=== PATIENT | male | born 1965 | race Two or more races ===

== ENCOUNTER 2023-12-13 16:15 | Outpatient (OUT) | payer OTHER, SELFPAY ==
--- NOTE | 2023-12-13 16:22 | XR_ITS ---
[address] [address] Patient Name: SAMI ANDERSON MRN: [id number] date: 1965 Sex: M Assigned Patient Location: [facility] Current Patient Location: Accession/Order Number: [id number] Exam Date: 12/13/2023 16:45 Report Date: 12/14/2023 07:30 At the request of: RUBA ARROYO Procedure: XR knee LT 3V PROCEDURE: XR knee LT 3V COMPARISON: None. HISTORY: medial meniscus tear, left subsequent encounter S83.242D FINDINGS: BONES:No fracture, acute abnormality, or significant arthropathy. SOFT TISSUES:Negative. No visible soft tissue swelling. EFFUSION:None visible. OTHER: Negative. XR/XR knee LT 3V IMPRESSION: No acute radiographic abnormality Electronically authenticated by: SANNA BETHEA Date: 12/14/2023 07:30
== END 2023-12-13 16:16 | disposition home or self-care (01) ==
LOC: RAD 16:18
PROVIDERS: PCP Family Medicine; Visit Provider Family Medicine
DX: S83.242D Other tear of medial meniscus, current injury, left knee, subsequent encounter (principal)
CPT/HCPCS: 73562